=== PATIENT | female | born 1985 | race Caucasian/White ===

== ENCOUNTER 2018-07-23 21:12 | Inpatient (IN) | payer MEDICAID ==
[~2018-07-23] VITALS: Ht 172.7 cm; Wt 113.1 kg
[~2018-07-23 21:12] MED LIST: VENL75TA2 PO
--- NOTE | 2018-07-23 21:38 | NUR ---
PT ARRIVES FROM HOME TODAY FOR RIGHT UPPER ABD QUADRANT PAIN X 5 DAYS. PT HAD A HIDA SCAN ON WEDNESDAY WITH RESULTS SAYING GALLBLADDER WAS THICKENED. SYMPTOMS STARTED ON WEDNESDAY. PT REPORTS THAT SHE HAS 7/10 ABD PAIN. PT DENIES PREGANCY AT THS TIME. PT DENIES TRAUMA AT THIS TIME. PT REPORTS NORMAL BM AND VOIDS AT THIS TIME. PT ASKED TO GET INTO [facility] FOR MD J[place]TO. PT IS TENDER TO ABD PALAPTION AND BOWEL SOUNDS ARE PRESENT. AWAITING FURTHER ORDERS. CALL LIGHT IN REACH.
[2018-07-23] MEDS ORDERED: ONDANSETRON 2MG/ML, 2ML ONE (22:13)
[2018-07-23] MEDS ORDERED: MORPHINE SULFATE 4 MG/ML, 1ML ONE (22:13)
[2018-07-23] MEDS ORDERED: SODIUM CHLORIDE FLUSH 10ML SYR IVF ONE (22:30)
[2018-07-23] MEDS ORDERED: ONDANSETRON 2MG/ML, 2ML IVPush ONE (22:30)
[2018-07-23] MEDS ORDERED: MORPHINE SULFATE 4 MG/ML, 1ML IVPush PRN (22:30)
[2018-07-23 22:56] LABS: BASOPHILS # (AUTO) 0.04 x10^3/uL (0-0.1); BASOPHILS % (AUTO) 0 % (0-1); EOSINOPHILS # (AUTO) 0.18 x10^3/uL (0-0.4); EOSINOPHILS % (AUTO) 2 % (1-7); LYMPHOCYTES % (AUTO) 18 % (22-44); MD NO; MEAN CORPUSCULAR HGB CONC 34.4 g/dL (32.4-35.8); MEAN CORPUSCULAR VOLUME 90.2 fL (80-100); MEAN PLATELET VOLUME 10.3 fL (7.4-10.4); MONOCYTES # (AUTO) 0.58 x10^3/uL (0.2-0.8); MONOCYTES % (AUTO) 6 % (2-9); NEUTROPHILS # (AUTO) 6.86 x10^3/uL (1.8-6.8); NEUTROPHILS % (AUTO) 73 % (42-75); PLATELET COUNT 262 x10^3/uL (130-400); RED BLOOD COUNT 5.34 x10^6/uL (3.82-5.3); RED CELL DISTRIBUTION WIDTH 13.6 % (9.6-15.2)
[2018-07-23 23:09] LABS: ALANINE AMINOTRANSFERASE 771 U/L (12-78); ALBUMIN 3.8 g/dL (3.4-5.0); ANION GAP 7 mmol/L (5-15); CALCIUM 9.1 mg/dL (8.5-10.1); CHLORIDE 105 mmol/L (98-107)
[2018-07-23 23:13] LABS: ALKALINE PHOSPHATASE 264 U/L (45-117); TOTAL PROTEIN 7.9 g/dL (6.4-8.2)
--- NOTE | 2018-07-23 23:30 | NUR ---
PT GIVEN URINE CUP AND ASKED FOR SAMPLE. UNABLE TO PROVIDE SAMPLE ATT.
--- NOTE | 2018-07-23 23:39 | NUR ---
PTs CHART UP FOR RECHECK
[2018-07-24] MEDS ORDERED: hydrALAzine 20 MG/ML, 1ML IVPush PRN (01:00)
[2018-07-24] MEDS ORDERED: LABETALOL 5MG/ML, 20ML IVPush PRN (01:00)
[2018-07-24] MEDS ORDERED: BISACODYL 10 MG SUPP PR PRN (01:00)
--- NOTE | 2018-07-24 01:01 | NUR ---
REPORT GIVEN TO JANY ABDI
[2018-07-24 01:20] VITALS: BP 123/80
[2018-07-24] MEDS: NS + 20MEQ KCL 1,000 ML IV SCH ×3 (01:45→20:08)
[2018-07-24 02:59] VITALS: BP 112/78
[2018-07-24 07:10] VITALS: BP 102/70
[2018-07-24] MEDS: PANTOPRAZOLE 40 MG IV IVPush SCH (07:47)
[2018-07-24] MEDS: HEPARIN 5,000 UNITS/ML, 1ML SQ SCH ×2 (07:47→16:32)
[2018-07-24 08:01] LABS: ALANINE AMINOTRANSFERASE 683 U/L (12-78); ALBUMIN 3.2 g/dL (3.4-5.0); ANION GAP 5 mmol/L (5-15); CALCIUM 8.5 mg/dL (8.5-10.1); CHLORIDE 109 mmol/L (98-107)
[2018-07-24 08:03] LABS: ALKALINE PHOSPHATASE 225 U/L (45-117); BILIRUBIN,TOTAL 1.4 mg/dL (0.2-1.0); TOTAL PROTEIN 6.7 g/dL (6.4-8.2)
[2018-07-24 08:05] LABS: BASOPHILS # (AUTO) 0.05 x10^3/uL (0-0.1); BASOPHILS % (AUTO) 1 % (0-1); EOSINOPHILS # (AUTO) 0.27 x10^3/uL (0-0.4); EOSINOPHILS % (AUTO) 3 % (1-7); LYMPHOCYTES # (AUTO) 3.12 x10^3/uL (1-3.4); LYMPHOCYTES % (AUTO) 32 % (22-44); MD NO; MEAN CORPUSCULAR HEMOGLOBIN 30.7 pg (27.0-34.8); MEAN CORPUSCULAR HGB CONC 33.9 g/dL (32.4-35.8); MEAN CORPUSCULAR VOLUME 90.5 fL (80-100); MEAN PLATELET VOLUME 10.4 fL (7.4-10.4); MONOCYTES # (AUTO) 0.73 x10^3/uL (0.2-0.8); MONOCYTES % (AUTO) 8 % (2-9); NEUTROPHILS # (AUTO) 5.47 x10^3/uL (1.8-6.8); NEUTROPHILS % (AUTO) 57 % (42-75); PLATELET COUNT 239 x10^3/uL (130-400); RED CELL DISTRIBUTION WIDTH 13.7 % (9.6-15.2)
[2018-07-24 12:25] LABS: MICROSCOPIC INDICATED
[2018-07-24 12:48] LABS: CULTURE INDICATED? YES
[2018-07-24 13:16] VITALS: BP 100/58
[2018-07-24] MEDS: morphine SULFATE 10 MG/ML, 1ML IVPush PRN ×2 (16:32→20:09)
[2018-07-24 18:58] VITALS: BP 117/78
[2018-07-24] MEDS: ONDANSETRON 2MG/ML, 2ML IVPush PRN (20:08)
[2018-07-25] MEDS: morphine SULFATE 10 MG/ML, 1ML IVPush PRN ×3 (00:28→23:30)
[2018-07-25] MEDS: ONDANSETRON 2MG/ML, 2ML IVPush PRN ×2 (00:42→17:18)
[2018-07-25 01:20] VITALS: BP 114/76
[2018-07-25] MEDS: NS + 20MEQ KCL 1,000 ML IV SCH ×2 (04:37→13:31)
[2018-07-25 06:20] LABS: CHLORIDE 110 mmol/L (98-107)
[2018-07-25 06:31] LABS: ALANINE AMINOTRANSFERASE 602 U/L (12-78); ALBUMIN 3.3 g/dL (3.4-5.0); ALKALINE PHOSPHATASE 231 U/L (45-117); ANION GAP 9 mmol/L (5-15); BILIRUBIN,TOTAL 1.3 mg/dL (0.2-1.0); CALCIUM 8.9 mg/dL (8.5-10.1); CREATININE 0.81 mg/dL (0.55-1.02)
[2018-07-25 06:32] LABS: BASOPHILS # (AUTO) 0.04 x10^3/uL (0-0.1); BASOPHILS % (AUTO) 1 % (0-1); EOSINOPHILS # (AUTO) 0.24 x10^3/uL (0-0.4); EOSINOPHILS % (AUTO) 4 % (1-7); LYMPHOCYTES # (AUTO) 2.64 x10^3/uL (1-3.4); LYMPHOCYTES % (AUTO) 40 % (22-44); MD NO; MEAN CORPUSCULAR HEMOGLOBIN 30.9 pg (27.0-34.8); MEAN CORPUSCULAR VOLUME 90.9 fL (80-100); MEAN PLATELET VOLUME 11.1 fL (7.4-10.4); MONOCYTES # (AUTO) 0.51 x10^3/uL (0.2-0.8); MONOCYTES % (AUTO) 8 % (2-9); NEUTROPHILS # (AUTO) 3.17 x10^3/uL (1.8-6.8); NEUTROPHILS % (AUTO) 48 % (42-75); PLATELET COUNT 227 x10^3/uL (130-400); RED BLOOD COUNT 4.43 x10^6/uL (3.82-5.3); RED CELL DISTRIBUTION WIDTH 13.6 % (9.6-15.2)
[2018-07-25 06:50] VITALS: BP 105/69
[2018-07-25] MEDS: PANTOPRAZOLE 40 MG IV IVPush SCH (09:56)
[2018-07-25] MEDS: HEPARIN 5,000 UNITS/ML, 1ML SQ SCH ×4 (09:56→19:50)
[2018-07-25 12:23] VITALS: BP 105/71
[2018-07-25] MEDS ORDERED: FENTANYL PF 100 MCG/2ML ONE (14:56)
[2018-07-25] MEDS ORDERED: ONDANSETRON 2MG/ML, 2ML ONE (15:16)
[2018-07-25] MEDS ORDERED: ROCURONIUM 10 MG/ML,10ML ONE (15:16)
[2018-07-25] MEDS ORDERED: SUCCINYLCHOLINE 20 MG/ML, 10ML ONE (15:16)
[2018-07-25] MEDS ORDERED: PROPOFOL 10 MG/ML, 20ML ONE (15:16)
[2018-07-25] MEDS ORDERED: DEXAMETHASONE 4 MG/ML, 1ML ONE (15:16)
[2018-07-25] MEDS ORDERED: OMNIPAQUE 350 MG/ML, 50 ML BOTTLE ONE (15:25)
[2018-07-25] MEDS ORDERED: FENTANYL PF 100 MCG/2ML IV PRN ×2 (16:00→17:00)
[2018-07-25] MEDS ORDERED: MIDAZOLAM 1 MG/ML, 2ML IV PRN (16:00)
[2018-07-25] MEDS ORDERED: ALBUTEROL SULFATE 2.5 MG/3 ML NPPB PRN (16:00)
[2018-07-25] MEDS ORDERED: PROMETHAZINE 25 MG/ML, 1ML IV PRN (16:00)
[2018-07-25] MEDS ORDERED: MEPERIDINE/PF 25MG/0.5ML IVPush PRN (16:00)
[2018-07-25] MEDS ORDERED: HALOPERIDOL 5 MG/ML IV PRN (16:00)
[2018-07-25] MEDS ORDERED: LABETALOL 5MG/ML, 20ML IV PRN (16:00)
[2018-07-25] MEDS ORDERED: OXYcodone 5 MG/5 ML ORAL.SOL UDC PO PRN ×2 (16:00→17:00)
[2018-07-25] MEDS ORDERED: PROMETHAZINE 12.5 MG SUPP PR PRN (16:00)
[2018-07-25] MEDS ORDERED: ONDANSETRON 2MG/ML, 2ML IV PRN (16:00)
[2018-07-25] MEDS ORDERED: EPHEDRINE 50 MG/ML, 1ML IVPush PRN (16:00)
[2018-07-25] MEDS ORDERED: DIAZEPAM 5 MG/ML, 2ML IVPush PRN (16:00)
[2018-07-25] MEDS ORDERED: hydrALAzine 20 MG/ML, 1ML IV PRN (16:00)
[2018-07-25] MEDS ORDERED: MORPHINE SULFATE 4 MG/ML, 1ML IVPush PRN (16:00)
[2018-07-25] MEDS ORDERED: HYDROmorphone 2 MG/ML, 1ML IVPush PRN (16:00)
[2018-07-25] MEDS ORDERED: ONDANSETRON ODT 8 MG PO PRN (16:00)
[2018-07-25] MEDS ORDERED: OXYcodone 5 MG/5 ML ORAL.SOL UDC ONE (16:34)
[2018-07-25 19:15] VITALS: BP 109/69
[2018-07-26] MEDS: NS + 20MEQ KCL 1,000 ML IV SCH ×3 (00:42→21:41)
[2018-07-26 01:28] VITALS: BP 98/63
[2018-07-26] MEDS: ONDANSETRON 2MG/ML, 2ML IVPush PRN (04:28)
[2018-07-26] MEDS: morphine SULFATE 10 MG/ML, 1ML IVPush PRN (04:28)
[2018-07-26] MEDS ORDERED: PROMETHAZINE 25 MG/ML, 1ML IM PRN (05:30)
[2018-07-26 06:20] LABS: ALBUMIN 3.2 g/dL (3.4-5.0); ANION GAP 9 mmol/L (5-15); CALCIUM 8.6 mg/dL (8.5-10.1); CHLORIDE 108 mmol/L (98-107)
[2018-07-26 06:23] LABS: ALANINE AMINOTRANSFERASE 569 U/L (12-78); ALKALINE PHOSPHATASE 247 U/L (45-117); BILIRUBIN,TOTAL 0.9 mg/dL (0.2-1.0); CREATININE 0.88 mg/dL (0.55-1.02); TOTAL PROTEIN 7.1 g/dL (6.4-8.2)
[2018-07-26 07:06] VITALS: BP 119/78
[2018-07-26] MEDS: HEPARIN 5,000 UNITS/ML, 1ML SQ SCH ×2 (09:39→15:48)
[2018-07-26] MEDS: PANTOPRAZOLE 40 MG IV IVPush SCH (09:48)
[2018-07-26 12:45] VITALS: BP 116/77
[2018-07-26 18:35] VITALS: BP 131/82
[2018-07-27] MEDS: HEPARIN 5,000 UNITS/ML, 1ML SQ SCH ×3 (00:08→16:00)
[2018-07-27 04:35] VITALS: BP 106/70
[2018-07-27] MEDS: NS + 20MEQ KCL 1,000 ML IV SCH ×2 (04:57→17:24)
[2018-07-27 05:04] LABS: BASOPHILS # (AUTO) 0.05 x10^3/uL (0-0.1); BASOPHILS % (AUTO) 0 % (0-1); EOSINOPHILS # (AUTO) 0.07 x10^3/uL (0-0.4); EOSINOPHILS % (AUTO) 1 % (1-7); LYMPHOCYTES # (AUTO) 1.83 x10^3/uL (1-3.4); LYMPHOCYTES % (AUTO) 12 % (22-44); MD NO; MEAN CORPUSCULAR HEMOGLOBIN 31.2 pg (27.0-34.8); MEAN CORPUSCULAR HGB CONC 34.2 g/dL (32.4-35.8); MEAN PLATELET VOLUME 10.1 fL (7.4-10.4); MONOCYTES # (AUTO) 1.19 x10^3/uL (0.2-0.8); MONOCYTES % (AUTO) 8 % (2-9); NEUTROPHILS # (AUTO) 11.91 x10^3/uL (1.8-6.8); NEUTROPHILS % (AUTO) 79 % (42-75); PLATELET COUNT 245 x10^3/uL (130-400); RED BLOOD COUNT 4.95 x10^6/uL (3.82-5.3)
[2018-07-27 05:11] LABS: ALANINE AMINOTRANSFERASE 504 U/L (12-78); ALBUMIN 3.4 g/dL (3.4-5.0); ANION GAP 9 mmol/L (5-15); CALCIUM 8.6 mg/dL (8.5-10.1); CHLORIDE 104 mmol/L (98-107); CREATININE 0.89 mg/dL (0.55-1.02)
[2018-07-27 05:14] LABS: ALKALINE PHOSPHATASE 214 U/L (45-117); BILIRUBIN,TOTAL 1.1 mg/dL (0.2-1.0); TOTAL PROTEIN 7.5 g/dL (6.4-8.2)
[2018-07-27] MEDS ORDERED: MIDAZOLAM 1 MG/ML, 2ML ONE (07:16)
[2018-07-27] MEDS ORDERED: FENTANYL PF 250 MCG/5ML ONE (07:16)
[2018-07-27] MEDS ORDERED: NEOSTIGMINE 1 MG/ML, 10ML ONE (07:19)
[2018-07-27] MEDS ORDERED: ROCURONIUM 10MG/ML,5ML ONE (07:19)
[2018-07-27] MEDS ORDERED: ONDANSETRON 2MG/ML, 2ML ONE (07:19)
[2018-07-27] MEDS ORDERED: PROPOFOL 10 MG/ML, 20ML ONE (07:19)
[2018-07-27] MEDS ORDERED: CEFOTETAN PMX 2GM/50ML 50 ML ONE (07:19)
[2018-07-27] MEDS ORDERED: DEXAMETHASONE 4 MG/ML, 1ML ONE (07:19)
[2018-07-27] MEDS ORDERED: GLYCOPYRROLATE 0.2MG/1ML, 5ML ONE (07:19)
[2018-07-27] MEDS: PANTOPRAZOLE 40 MG IV IVPush SCH (07:30)
[2018-07-27] MEDS ORDERED: MEPERIDINE/PF 25MG/0.5ML IVPush PRN (08:00)
[2018-07-27] MEDS ORDERED: PROMETHAZINE 25 MG/ML, 1ML IV PRN (08:00)
[2018-07-27] MEDS ORDERED: OXYcodone 5 MG/5 ML ORAL.SOL UDC PO PRN (08:00)
[2018-07-27] MEDS ORDERED: PROMETHAZINE 12.5 MG SUPP PR PRN (08:00)
[2018-07-27] MEDS ORDERED: LABETALOL 5MG/ML, 20ML IV PRN (08:00)
[2018-07-27] MEDS ORDERED: PROMETHAZINE 25 MG SUPP PR PRN (08:00)
[2018-07-27] MEDS ORDERED: hydrALAzine 20 MG/ML, 1ML IV PRN (08:00)
[2018-07-27] MEDS ORDERED: ONDANSETRON ODT 8 MG PO PRN (08:00)
[2018-07-27] MEDS ORDERED: ONDANSETRON 2MG/ML, 2ML IV PRN (08:00)
[2018-07-27] MEDS ORDERED: HYDROmorphone 2 MG/ML, 1ML IVPush PRN (08:00)
[2018-07-27] MEDS ORDERED: MORPHINE SULFATE 4 MG/ML, 1ML IVPush PRN (08:00)
[2018-07-27] MEDS ORDERED: PROMETHAZINE 25 MG/ML, 1ML IM PRN ×2 (08:00)
[2018-07-27] MEDS ORDERED: KETOROLAC 30 MG/1 ML ONE (08:04)
[2018-07-27] MEDS ORDERED: BUPIVACAINE/PF 0.5% INFIL ONE (08:21)
[2018-07-27] MEDS ORDERED: FENTANYL PF 100 MCG/2ML ONE ×2 (08:44→09:19)
[2018-07-27] MEDS ORDERED: OXYcodone 5 MG/5 ML ORAL.SOL UDC ONE (09:19)
[2018-07-27] MEDS: FENTANYL PF 100 MCG/2ML IV PRN ×3 (09:20→09:35)
[2018-07-27 10:00] VITALS: BP 118/79
[2018-07-27] MEDS: OXYcodone 5 MG/5 ML ORAL.SOL UDC PO PRN ×2 (15:46→23:59)
[2018-07-27 15:56] VITALS: BP 104/68
[2018-07-27 18:56] VITALS: BP 108/72
[2018-07-28] MEDS: NS + 20MEQ KCL 1,000 ML IV SCH ×2 (00:48→10:18)
[2018-07-28 00:58] VITALS: BP 111/75
[2018-07-28] MEDS: OXYcodone 5 MG/5 ML ORAL.SOL UDC PO PRN ×2 (05:06→10:20)
[2018-07-28 05:24] LABS: CHLORIDE 108 mmol/L (98-107)
[2018-07-28 05:28] LABS: BASOPHILS # (AUTO) 0.03 x10^3/uL (0-0.1); BASOPHILS % (AUTO) 0 % (0-1); EOSINOPHILS # (AUTO) 0.03 x10^3/uL (0-0.4); EOSINOPHILS % (AUTO) 0 % (1-7); LYMPHOCYTES # (AUTO) 1.36 x10^3/uL (1-3.4); LYMPHOCYTES % (AUTO) 9 % (22-44); MD NO; MEAN CORPUSCULAR HEMOGLOBIN 31.3 pg (27.0-34.8); MEAN CORPUSCULAR HGB CONC 34.3 g/dL (32.4-35.8); MEAN CORPUSCULAR VOLUME 91.2 fL (80-100); MEAN PLATELET VOLUME 10.1 fL (7.4-10.4); MONOCYTES # (AUTO) 1.12 x10^3/uL (0.2-0.8); MONOCYTES % (AUTO) 8 % (2-9); NEUTROPHILS # (AUTO) 12.14 x10^3/uL (1.8-6.8); NEUTROPHILS % (AUTO) 83 % (42-75); PLATELET COUNT 215 x10^3/uL (130-400); RED BLOOD COUNT 4.22 x10^6/uL (3.82-5.3); RED CELL DISTRIBUTION WIDTH 13.7 % (9.6-15.2)
[2018-07-28 05:29] LABS: ALANINE AMINOTRANSFERASE 363 U/L (12-78); ALBUMIN 2.9 g/dL (3.4-5.0); ALKALINE PHOSPHATASE 156 U/L (45-117); ANION GAP 8 mmol/L (5-15); BILIRUBIN,TOTAL 0.6 mg/dL (0.2-1.0); CALCIUM 8.3 mg/dL (8.5-10.1); CREATININE 0.73 mg/dL (0.55-1.02); TOTAL PROTEIN 6.6 g/dL (6.4-8.2)
[2018-07-28 07:15] VITALS: BP 108/70
[2018-07-28] MEDS: PANTOPRAZOLE 40 MG IV IVPush SCH (08:08)
[2018-07-28] MEDS: HEPARIN 5,000 UNITS/ML, 1ML SQ SCH ×2 (08:10)
[2018-07-28 13:49] VITALS: BP 103/69
[2018-07-28] MEDS ORDERED: OXYC5CAP2 PO (15:22)
== END 2018-07-28 15:30 | disposition home or self-care (01) | DRG 418 ==
LOC: ED 21:49 → EDIP 07-24 00:41 → 3NW 07-24 01:08 → DCLOUNGE 07-28 15:20
PROVIDERS: ADMIT Family Medicine; ATTEND Family Medicine
PROC: 0FC98ZZ Extirpation of Matter from Common Bile Duct, Via Natural or Artificial Opening Endoscopic (ICD-10-PCS; 2018-07-24)
PROC: BF101ZZ Fluoroscopy of Bile Ducts using Low Osmolar Contrast (ICD-10-PCS; 2018-07-24)
PROC: 0FT44ZZ Resection of Gallbladder, Percutaneous Endoscopic Approach (ICD-10-PCS; principal; 2018-07-27 08:00)
DX: K80.50 Calculus of bile duct without cholangitis or cholecystitis without obstruction (principal); N17.9 Acute kidney failure, unspecified; D72.829 Elevated white blood cell count, unspecified; K76.89 Other specified diseases of liver; E66.01 Morbid (severe) obesity due to excess calories; Z68.37 Body mass index [BMI] 37.0-37.9, adult; F32.9 Major depressive disorder, single episode, unspecified
CPT/HCPCS: 36415; 74328; 99285; J3490; 74181; 76700; 78226; 80053; 81001; 83690; 83735; 84100; 84703; 85025; 87086; 88304; 96374; 96375; G0378; J1100; J1644; J1885; J2250; J2405; J2550; J2704; J2710; J3010; J3480; Q9967; A9537; C1769; C9113; C9898; J0330; J2270